=== PATIENT | female | born 2000 | race African-American/Black ===

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

== ENCOUNTER 2020-04-04 19:18 | Emergency (ER) | payer MEDICAID | END 2020-04-04 19:49 | disposition left against medical advice (07) | LOC: ER 19:18 | DX: R68.89 Other general symptoms and signs (principal); Z53.21 Procedure and treatment not carried out due to patient leaving prior to being seen by health care provider ==

== ENCOUNTER 2023-10-27 17:21 | Emergency (ER) | payer MEDICAID ==
[~2023-10-27] VITALS: Ht 180.3 cm; Wt 127.0 kg
[2023-10-27 17:40] VITALS: BP 146/95; PULSE 65; RESP 16; TEMP 98.6; O2SAT 100
[2023-10-27] MEDS ORDERED: ISOP30DR11 OT (17:48)
== END 2023-10-27 17:52 | disposition home or self-care (01) ==
LOC: ER 17:21
DX: H61.23 Impacted cerumen, bilateral (principal)
CPT/HCPCS: 99282

== ENCOUNTER 2024-06-12 15:25 | Emergency (ER) | payer MEDICAID ==
[~2024-06-12] VITALS: Ht 177.8 cm; Wt 97.0 kg
[~2024-06-12 15:25] MED LIST: ISOP30DR11 OT
[2024-06-12 15:34] VITALS: TEMP 98.3; O2SAT 100
[2024-06-12] MEDS ORDERED: AMOX1TAB16 MT (16:40)
[2024-06-12 16:56] VITALS: BP 150/78; PULSE 60; RESP 14
== END 2024-06-12 16:59 | disposition home or self-care (01) ==
LOC: ER 15:25
DX: K08.89 Other specified disorders of teeth and supporting structures (principal)
CPT/HCPCS: 99283